=== PATIENT | female | born 1960 | race Hispanic/Latino ===

== ENCOUNTER 2017-09-21 11:34 | Inpatient (IN) | payer OTHER ==
[~2017-09-21] VITALS: Ht 147.3 cm; Wt 74.9 kg
[~2017-09-21 11:34] MED LIST: FLOMAX(MONOGRA0.4 MG PO; PERCOCET 325 MG1 TA2 PO
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
[2017-09-21] MEDS ORDERED: TRAZODONE HCL50 M1 PO (12:07)
[2017-09-21] MEDS ORDERED: NABUMETONE500 M1 PO (12:07)
[2017-09-21] MEDS ORDERED: OLANZAPINE20 M1 PO (12:07)
[2017-09-21] MEDS ORDERED: DIVALPROEX SOD500 M3 PO (12:09)
[2017-09-21 12:30] LABS: ABSOLUTE BASOPHIL COUNT 0 /CUMM (0.0-0.2); ABSOLUTE EOSINOPHIL COUNT 0 /CUMM (0.0-0.7); ABSOLUTE GRANULOCYTE CT 6.3 /CUMM (1.4-6.5); ABSOLUTE LYMPH COUNT 2.6 /CUMM (1.2-3.4); ABSOLUTE MONOCYTE COUNT 0.9 /CUMM (0.10-0.60); BASOPHIL % 0.3 % (0.0-2.0); EOSINOPHIL % 0.4 % (0-5); GRANULOCYTE % 63.5 % (42.2-75.2); HEMATOCRIT 37.9 % (37-47); MEAN CORPUSCULAR HGB 28.9 PG (27.0-31.0); MEAN CORPUSCULAR HGB CONC 33.9 G/DL (33.0-37.0); MEAN CORPUSCULAR VOLUME 85.3 FL (81.0-99.0); MEAN PLATELET VOLUME 9.7 FL (7.4-10.4); PLATELET COUNT 255 /CUMM (130-400); RBC DISTRIBUTION WIDTH 15.7 % (11.5-14.5); RED BLOOD CELL CT 4.44 /CUMM (4.20-5.40); WHITE BLOOD CELL COUNT 9.9 /CUMM (4.8-10.8)
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
[2017-09-21 20:14] VITALS: BP 135/78
[2017-09-21] MEDS ORDERED: SYNTHROID50 MCG PO (21:24)
[2017-09-22 08:04] VITALS: BP 137/80
[2017-09-22 12:23] VITALS: BP 135/80
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
[2017-09-22 16:11] VITALS: BP 142/68
--- NOTE | 2017-09-22 17:18 | SOCIAL WORKER PROG NOTE PSYCH ---
Social Work Progress Note Progress Note 11:15am This blog writer met with patient utilizing the historic interpreter service via phone (Sebastien , ID: [id number]). She reported that she was feeling good, however, was concerned about her granddaughter. It was unclear as to what her concerns were. Patient stated that she had sought treatment prior to the hospital at a clinic, however, it was unclear which clinic, [facility]. She stated that she had an appointment that was on the and she was unable to attend. Due to difficulties with the phone, a new historic interpreter was provided (Francois, ID: [id number]) . Patient described her mood as "I'm tired". She discussed wanting to fix her apartment in order to leave for her older daughter. She stated that she will be leaving her apartment on 09/25 and plans to return to [place] on 09/26/17, thought would prefer to stay in [place]. Patient stated that she lost her SSI and had an appointment scheduled for 09/30/17. Patient denied SI/HI/AH/VH. She reported past SI about 6-7 years ago. She agreed to inform staff should the SI return. Patient appears to be unclear as to the reason for the current inpatient admission. She denies having any concerns about herself and reporting a good, but tired mood. Patient was spontaneously engaged during this meeting, and while frustrated with the translators at times, she appeared to be able to utilize this phone system during the meeting.
[2017-09-22 19:47] VITALS: BP 140/77
[2017-09-23 07:54] VITALS: BP 122/76
--- NOTE | 2017-09-23 12:06 | SOCIAL WORKER PROG NOTE PSYCH ---
Social Work Progress Note Progress Note LUIS MEAD [id number] 1960 LUIS MEAD [id number] Pended Authorization # Client Authorization # Type of Request [id number] CONCURRENT Date of Admission/ Start of Services Requested From Submission Date 09/21/2017 09/23/2017 09/23/2017
[2017-09-23 12:31] VITALS: BP 120/74
--- NOTE | 2017-09-23 13:18 | SOCIAL WORKER PROG NOTE PSYCH ---
Social Work Progress Note Progress Note 1:18pm: This entry writer was unable to meet with the patient due to the patient sleeping. This entry writer was contacted by Merna Reyes ([facility]) by phone who stated that the concurrent review was submitted too early and would need to be resubmitted tomorrow. This entry writer spoke with Dr. Chakraborty regarding this patient. Attempt will be made to reach the patient's daughters to schedule a family meeting. 4:55pm: This entry writer attempted a second time to meet with the patient who was sleeping.
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
[2017-09-23 16:10] VITALS: BP 136/77
[2017-09-23 19:51] VITALS: BP 144/81
[2017-09-24 07:49] VITALS: BP 121/89
[2017-09-24 12:30] VITALS: BP 139/62
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
--- NOTE | 2017-09-24 14:48 | SOCIAL WORKER PROG NOTE PSYCH ---
Social Work Progress Note Progress Note [facility] Concurrent Review submitted Member Name Member ID Member Subscriber Name Subscriber ID LUIS MEAD [id number] 1960 LUIS MEAD [id number] Pended Authorization # Client Authorization # Type of Request [id number] CONCURRENT Date of Admission/ Start of Services Requested From Submission Date 09/21/2017 09/24/2017 09/24/2017 Level of Service Type of Service Level of Care Type of Care INPATIENT/OC Mental Health Inpatient Inpatient Hospital - Inpatient Hospital
[2017-09-24 15:40] VITALS: BP 142/81
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
[2017-09-24 19:34] VITALS: BP 137/63
[2017-09-25 07:41] VITALS: BP 138/63
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
[2017-09-25 12:17] VITALS: BP 139/77
[2017-09-25 16:01] VITALS: BP 117/83
[2017-09-25 20:27] VITALS: BP 138/81
[2017-09-26 08:02] VITALS: BP 131/74
[2017-09-26 12:00] VITALS: BP 132/80
--- NOTE | 2017-09-26 12:03 | CP SOUTH PROGRESS NOTE PSYCH ---
Psych (Inpt) Progress Note Progress Note Include the following elements, when applicable: Involvement in the active treatment of the patient with behavioral observations of the patient and the patient's response to the treatment. Review of the ongoing treatment process in the context of the treatment plan. Indication of how multi-disciplinary staff members are carrying out the treatment plan. Plans for future interventions and recommendations for revision of the treatment plan. Liaison with other physicians/providers. Progress Note: Met with pt with interpeter. Pt notes that she is frustrated by the family meeting as her daughters did not translate for her. She request an in-person radiator specialist and another family meeting. Her daughter told her yesterday with she is not allowed back in the house and as ?removed her belongings. This is distressing to the patient, understandable. Pt feels less daytime sedation with change in technician preventative medicine time. Feels ongoing poor energy is like 2/2 her depression. Denies SI or HI. Denies AVHs. MSE General appearance: good hygiene and grooming; Attitude: cooperative; Eye contact: appropriate; Movement: no psychomotor agitation or slowing; Speech: nl fluency, nl rate/rhythm, nl volume, nl prosody, in turkmen; Mood: "kanika" Affect: anxious and worried but flat, appropriate, constricted, non-labile, congruent; Thought process: linear and goal-directed; Thought content: denied SI or HI, no paranoid ideation; Perception: denied hallucinations- auditory, visual, does not appear to be responding to internal stimuli; I/J: limited A/P: Pt with hx of schizoaffective disorder with delusions prior to hospitlized now with improved mood and thought process though ongoing concerns about housing. -Continue current medication regimen, changed seems to have helped with morning sedation - PATIENT REQUESTING IN PERSON INTERPETER FOR NEXT FAMILY MEETING -Encourage integration into the milieu
[2017-09-26 16:00] VITALS: BP 124/79
[2017-09-26 19:59] VITALS: BP 125/86
[2017-09-27 07:52] VITALS: BP 133/77
[2017-09-27 12:20] VITALS: BP 141/89
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
[2017-09-27 15:59] VITALS: BP 132/91
--- NOTE | 2017-09-27 17:39 | SOCIAL WORKER PROG NOTE PSYCH ---
Social Work Progress Note Progress Note 9:05pm This advertising copywriter spoke with Roberto Carlos at [facility] regarding the authorization. He stated that he would explore the issue as the concurrent review does not appear to be reflected on the website. This advertising copywriter received call from Jemima Mccabe ([phone]) at 9:35am stating that the information has been updated. The review date listed on the [facility] website is now 09/29/17. 5:05pm This advertising copywriter met with patient (language phone/interpretor was utilized: Ant [id number]). Patient shared that she was feeling "a little depressed." She explained that she had recently today had an argument with her daughter about her granddaughter's inability to speak Sammarinese. Patient further explained that she is sad that she has only a short time left before she returns to [place] and would like to have time to spend with her family. She inquired about her discharge and was informed that this advertising copywriter would follow up with Dr. Chakraborty during the team meeting tomorrow morning. Patient was agreeable to this. Patient denied SI/HI/AH/VH. She stated that she plans to return to Dr. Tom, her psychiatrist, once she moves back to [place]. Patient was encouraged to use staff support if needed.
[2017-09-28 01:12] VITALS: BP 134/72
[2017-09-28 07:36] VITALS: BP 124/75
[2017-09-28 11:54] VITALS: BP 143/79
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
[2017-09-28] MEDS ORDERED: FLUPHENAZI25 MG/1 ML IM (14:24)
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
[2017-09-28 16:05] VITALS: BP 140/82
--- NOTE | 2017-09-28 17:26 | SOCIAL WORKER PROG NOTE PSYCH ---
Social Work Progress Note Progress Note 8:50am: This film writer spoke with patient's daughter, Rubi, by phone. She stated that she would confirm with her sister, Brigette, if the patient could stay with her until she moves back to [place]. Rubi returned this film writer's call and left a vm informing that the patient would be able to stay with her sister, Brigette, until returning to [place]. Furthermore, she stated that she would assist her mother in calling the patient 's psychiatrist to schedule an appointment. Rubi stated that she would pick her mother up from the hospital tomorrow around 11am and bring her to [facility]'s home. This film writer met with the patient and informed her of the above conversation. Patient was agreeable to this. Patient accepted the offer from her daughter to be provided support and assistance in calling the psychiatrist to schedule an appointment. Patient stated that she plans to return to [place] as scheduled and previously discussed. Patient's daughter called this film writer again to inform that she had attempted to schedule the appointment with the psychiatrist in [place] but was unable to do so and will try again tomorrow.
[2017-09-29 07:38] VITALS: BP 139/88
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
--- NOTE | 2017-09-29 16:55 | SOCIAL WORKER PROG NOTE PSYCH ---
Mildred Malagon 09/29/17 1644: Social Work Progress Note Progress Note Note created in error. to schedule an appointment with Dr. Tom in [place] at [facility]. Patient stated that she has the doctor's business card in her wallet. The interpretor call was ended in order for patient to retrieve the card. Upon retrieving the card, this promotion writer attempted to call the Clinic ([phone]) to schedule an appointment, however, they did not speak Australian. The interpretor phone was used again ([place], [place] [id number]) at 10:50am. Patient stated that she did not have any concerns about discharging today and will stay with her daughter, Brigette, until she returns to [place]. This was confirmed this morning with the patient's daughter, Rubi. Patient denied SI/HI/AH/VH. 11:05am: An attempt was made to call the [facility] again, utilizing the interpretor, Karina (ID [id number]). However, the attempt was unsuccessful. After speaking with Amy Gaines LCSW and Hetal Thomas LCSW, Sushila De La Torre ([facility], department of nursing) called [facility], with patient present and spoke with Pauline Chamorro to schedule the psychiatry appointment. This appointment was scheduled for 10/11/17 at 10am with Polly Prater at the [place], [place] clinic location. Patient was instructed to bring the discharge paperwork with her to the first session. They requested that the paperwork is NOT mailed or faxed. Patient was also provided with the Patient Health Summary. Patient's daughter, Rubi, arrived at [facility] and stated that she was providing transportation for the patient from the hospital to [facility]'s home.
--- NOTE | 2017-09-29 16:57 | SOCIAL WORKER PROG NOTE PSYCH ---
Social Work Progress Note Progress Note 10:40am This keno writer/runner met with patient. The interpretor phone was used ([place], [place] [id number]). Patient reported that her mood was "good". She stated that she plans to schedule an appointment with Dr. Tom in [place] at [facility]. Patient stated that she has the doctor's business card in her wallet. The interpretor call was ended in order for patient to retrieve the card. Upon retrieving the card, this keno writer/runner attempted to call the Clinic ([phone]) to schedule an appointment, however, they did not speak Yoruba. The interpretor phone was used again ([place], [place] [id number]) at 10:50am. Patient stated that she did not have any concerns about discharging today and will stay with her daughter, Brigette, until she returns to [place]. This keno writer/runner confirmed this plan this morning with the patient's daughter, Rubi. Patient denied SI/ HI/AH/VH. 11:05am: An attempt was made to call the [facility] again, utilizing the interpretor, Karina (ID [id number]). However, the attempt was unsuccessful as the numerical options could not be chosen via the interpretor service. After speaking with Amy Gaines LCSW and Hetal Thomas LCSW, Sushila De La Torre ([facility], department of nursing) called [facility], with patient present and spoke with Pauline Chamorro to schedule the psychiatry appointment. This appointment was scheduled for 10/11/17 at 10am with Polly Prater at the [place], [place] clinic location. Patient was instructed to bring the discharge paperwork with her to the first session. They requested that the paperwork is NOT mailed or faxed. Patient was also provided with the Patient Health Summary. Patient's daughter, Rubi, arrived at [facility] and stated that she was providing transportation for the patient from the hospital to [facility]'s home.
== END 2017-09-29 12:02 | DRG 750 ==
LOC: ERH 11:34 → ERHI 17:09 → CP SOUTH 17:09 → ENRESERV 17:26 → ENTRNSPT 18:41 → CP SOUTH 18:59 → CMPTRNSPT 19:01 → CP SOUTH 21:47
PROVIDERS: Emergency Medicine
DX: F20.9 Schizophrenia, unspecified (principal)
CPT/HCPCS: 80307; 81003; 93005; 93010; G0480; J2680; Q2036